=== PATIENT | male | born 1970 | race Caucasian/White ===

== ENCOUNTER 2016-02-25 17:11 | Emergency (ER) | payer BC ==
[~2016-02-25] VITALS: Ht 182.9 cm; Wt 127.3 kg
[~2016-02-25 17:11] MED LIST: AMOXICILLIN 8751 TAB PO; CEPHALEXIN500 M1 PO; CHANTIX 0.5MG0.5 MG PO; CLINDAMYCIN150 MG PO; FLEXERIL 1010 MG/TAB PO; HYZAAR 50-12.1 UDTAB PO; NO HOME MEDICATIONS; NORCO 325 MG-51 TAB PO; NORCO 325 MG-7.1 TAB PO; PRINZIDE 12.5 M1 TAB PO; PRINZIDE 25 MG-1 TAB PO; VALIUM 5MG T5 MG/TAB PO
[2016-02-25 17:12] VITALS: TEMP 97.7
[2016-02-25] MEDS ORDERED: NORCO 325 MG-51 TAB PO (18:11)
[2016-02-25 18:23] VITALS: BP 145/97; PULSE 64
== END 2016-02-25 18:24 | disposition home or self-care (01) ==
LOC: COL.ER 17:11
DX: K40.90 Unilateral inguinal hernia, without obstruction or gangrene, not specified as recurrent (principal)
CPT/HCPCS: J3010; J3360

== ENCOUNTER 2016-02-28 10:04 | Day surgery (SDC) | payer BC ==
[~2016-02-28] VITALS: Ht 182.9 cm; Wt 124.7 kg
[2016-02-28 10:30] VITALS: BP 162/104; PULSE 55; TEMP 97.8
[2016-02-28 15:15] VITALS: BP 140/89; PULSE 75; TEMP 98.3
[2016-02-28 15:30] VITALS: BP 127/90; PULSE 79
[2016-02-28] MEDS ORDERED: NORCO 325 MG-51 TAB PO (15:43)
[2016-02-28 15:45] VITALS: BP 151/91; PULSE 72
[2016-02-28 15:58] VITALS: TEMP 98.4
[2016-02-28 16:00] VITALS: BP 147/87; PULSE 64
== END 2016-02-28 16:20 | disposition home or self-care (01) ==
LOC: SDCO 10:04
DX: K40.90 Unilateral inguinal hernia, without obstruction or gangrene, not specified as recurrent (principal); F17.210 Nicotine dependence, cigarettes, uncomplicated; Z80.9 Family history of malignant neoplasm, unspecified
CPT/HCPCS: A4315; C1781; E0710; J0360; J1170; J1885; J2405; J2704; J3010; J7120

== ENCOUNTER 2017-01-05 12:29 | Emergency (ER) | payer BC ==
[~2017-01-05] VITALS: Ht 182.9 cm; Wt 127.3 kg
[2017-01-05 12:31] VITALS: TEMP 97.9
[2017-01-05] MEDS ORDERED: PRINZIDE 12.5 M1 TAB PO (12:34)
[2017-01-05 13:41] VITALS: BP 147/98
[2017-01-05 14:09] LABS: BASO # 0.1 (0.0-0.2); BASO % 0.6 % (0.0-2.0); EOS # 0.2 (0.0-0.7); EOS % 2.4 % (0-4.0); GRAN # 5.7 (1.4-6.5); GRAN % 56.5 % (42.2-75.2); HEMATOCRIT 40.8 % (42.0-52.0); HEMOGLOBIN 13.9 g/dl (13.5-18.0); LYMPH # 3.3 (1.2-3.4); LYMPH % 33.3 % (20.0-51.0); MEAN CELL VOLUME 94 fl (80.0-100.0); MEAN CORPUSCULAR HEMOGLOBIN 32 pg (27.0-31.0); MEAN CORPUSCULAR HGB CONC 34 g/dl (33.0-37.0); MEAN PLATELET VOLUME 9.7 fl (7.4-10.4); MONO # 0.6 (0.1-0.6); MONO % 6.2 % (1.7-9.3); PLATELET COUNT 332 K/mm3 (130-400); RED BLOOD COUNT 4.32 M/mm3 (4.20-5.60)
[2017-01-05 14:19] LABS: ADJUSTED CALCIUM 9.2 mg/dL (8.4-10.2); ALANINE AMINOTRANSFERASE 42 U/L (21-72); ALBUMIN 3.9 gm/dL (3.5-5.0); ALKALINE PHOSPHATASE 90 U/L (50-136); ANION GAP 7 mmol/L (7-16); BILIRUBIN,TOTAL 0.5 mg/dL (0.0-1.0); BLOOD UREA NITROGEN 10 mg/dL (9-20); CALCIUM 9.1 mg/dL (8.4-10.2); CARBON DIOXIDE 28 mmol/L (22-30); CHLORIDE 105 mmol/L (98-107); CREATININE, serum 1.05 mg/dL (0.66-1.25); GLUCOSE 93 mg/dL (74-106); POTASSIUM 4.2 mmol/L (3.4-5.0); SODIUM 140 mmol/L (137-145); TOTAL PROTEIN 6.4 gm/dL (6.4-8.2)
[2017-01-05 14:30] LABS: TROPONIN-I < 0.012 ng/mL (0.000-0.034)
[2017-01-05] MEDS ORDERED: NORCO 325 MG-7.1 TAB PO (15:07)
[2017-01-05 15:15] VITALS: PULSE 67
== END 2017-01-05 15:15 | disposition home or self-care (01) ==
LOC: COL.ER 12:29
PROVIDERS: Nurse Practitioner
DX: M25.512 Pain in left shoulder (principal); I10 Essential (primary) hypertension; F17.210 Nicotine dependence, cigarettes, uncomplicated; Z90.89 Acquired absence of other organs; X50.9XXA Other and unspecified overexertion or strenuous movements or postures, initial encounter
CPT/HCPCS: J1170

== ENCOUNTER 2017-03-16 16:07 | Day surgery (SDC) | payer BC ==
[~2017-03-16] VITALS: Ht 185.4 cm; Wt 127.3 kg
[2017-03-16] MEDS ORDERED: AMOXICILLIN875 MG PO (16:24)
[2017-03-16 17:36] LABS: BASO # 0.1 (0.0-0.2); BASO % 0.4 % (0.0-2.0); EOS # 0.3 (0.0-0.7); EOS % 1.9 % (0-4.0); GRAN # 9.2 (1.4-6.5); GRAN % 68.8 % (42.2-75.2); HEMATOCRIT 43.5 % (42.0-52.0); LYMPH # 2.6 (1.2-3.4); LYMPH % 19.4 % (20.0-51.0); MEAN CELL VOLUME 93 fl (80.0-100.0); MEAN CORPUSCULAR HEMOGLOBIN 32 pg (27.0-31.0); MEAN CORPUSCULAR HGB CONC 35 g/dl (33.0-37.0); MEAN PLATELET VOLUME 10.1 fl (7.4-10.4); MONO # 1.2 (0.1-0.6); MONO % 8.7 % (1.7-9.3); PLATELET COUNT 334 K/mm3 (130-400); RED BLOOD COUNT 4.69 M/mm3 (4.20-5.60); REDCELL DISTRIBUTION WIDTH-CV 13.1 % (11.5-14.5)
[2017-03-16 17:45] LABS: ALBUMIN 4.1 gm/dL (3.5-5.0); BILIRUBIN,TOTAL 0.5 mg/dL (0.0-1.0); C-REACTIVE PROTEIN 5.7 mg/dL (0.0-0.9); CALCIUM 9.3 mg/dL (8.4-10.2); CREATININE, serum 0.88 mg/dL (0.66-1.25); POTASSIUM 4.3 mmol/L (3.4-5.0); TOTAL PROTEIN 7.4 gm/dL (6.4-8.2)
[2017-03-16 18:09] LABS: COLLECTION METHOD CLEAN CATCH
[2017-03-16 18:14] LABS: MUCOUS Present /lpf; PH 6 (5-8); SQUAMOUS EPITHELIAL None Seen /hpf; URINE APPEARANCE Clear; URINE BACTERIA None Seen /hpf; URINE BILIRUBIN Negative (NEGATIVE); URINE BLOOD 1+ (NEGATIVE); URINE COLOR Yellow; URINE GLUCOSE Negative (NEGATIVE); URINE KETONE Negative (NEGATIVE); URINE LEUKOCYTE ESTERASE Negative (NEGATIVE); URINE NITRATE Negative (NEGATIVE); URINE PROTEIN(semi-quant) Negative (NEGATIVE); URINE RBC 0-2 /hpf
[2017-03-16] MEDS ORDERED: NORCO 325 MG-51 TAB PO (21:43)
[2017-03-16] MEDS ORDERED: AMOXICILLIN 8751 TAB PO (21:43)
[2017-03-16] MEDS ORDERED: COLACE 100100 MG/CAP PO (21:43)
[2017-03-16] MEDS ORDERED: MOTRIN 600600 MG/TAB PO (21:43)
[2017-03-16 22:10] VITALS: BP 140/92; PULSE 75; TEMP 97.9
[2017-03-16 22:25] VITALS: BP 141/90; PULSE 73
[2017-03-16 22:40] VITALS: BP 138/100; PULSE 71
[2017-03-16 22:55] VITALS: BP 140/97; PULSE 93
[2017-03-16 23:25] VITALS: BP 139/91; PULSE 71
[2017-03-16 23:55] VITALS: BP 136/100; PULSE 56
[2017-03-17 00:55] VITALS: BP 145/92; PULSE 65; TEMP 98
[2017-03-17 01:55] VITALS: BP 131/84; PULSE 71; TEMP 98
[2017-03-17 04:00] VITALS: BP 129/85; PULSE 59; TEMP 97.8
[2017-03-17 09:07] VITALS: BP 162/99; PULSE 60; TEMP 97.7
== END 2017-03-17 11:01 | disposition home or self-care (01) ==
LOC: COL.ER 16:07 → SDCO 20:14 → SURG 22:10 → SDCO 03-17 11:01
PROVIDERS: Emergency Medicine
DX: K35.80 Unspecified acute appendicitis (principal); J02.9 Acute pharyngitis, unspecified; I10 Essential (primary) hypertension; F17.210 Nicotine dependence, cigarettes, uncomplicated; Z82.49 Family history of ischemic heart disease and other diseases of the circulatory system; J98.4 Other disorders of lung; Z88.8 Allergy status to other drugs, medicaments and biological substances; Z23 Encounter for immunization
CPT/HCPCS: OP; J0330; J0694; J1100; J1885; J2310; J2405; J2543; J2704; J7030; J7120; Q9967

== ENCOUNTER 2017-03-18 07:46 | Inpatient (IN) | payer BC ==
[~2017-03-18] VITALS: Ht 182.9 cm; Wt 127.3 kg
[~2017-03-18 07:46] MED LIST changes: +AMOXICILLIN875 MG PO; +COLACE 100100 MG/CAP PO; +MOTRIN 600600 MG/TAB PO
[2017-03-18 09:39] LABS: HEMATOCRIT 47.1 % (42.0-52.0); HEMOGLOBIN 16.1 g/dl (13.5-18.0); MEAN CELL VOLUME 93 fl (80.0-100.0); MEAN CORPUSCULAR HEMOGLOBIN 32 pg (27.0-31.0); MEAN CORPUSCULAR HGB CONC 34 g/dl (33.0-37.0); MEAN PLATELET VOLUME 10.1 fl (7.4-10.4); RED BLOOD COUNT 5.07 M/mm3 (4.20-5.60); REDCELL DISTRIBUTION WIDTH-CV 13.2 % (11.5-14.5)
[2017-03-18 09:45] LABS: POTASSIUM 4.4 mmol/L (3.4-5.0)
[2017-03-18 09:47] LABS: PLATELET COUNT 443 K/mm3 (130-400)
[2017-03-18 09:50] LABS: ALBUMIN 4.2 gm/dL (3.5-5.0); BILIRUBIN,TOTAL 0.5 mg/dL (0.0-1.0); C-REACTIVE PROTEIN 5.8 mg/dL (0.0-0.9); CALCIUM 10.8 mg/dL (8.4-10.2); TOTAL PROTEIN 7.5 gm/dL (6.4-8.2)
[2017-03-18 10:41] LABS: COLLECTION METHOD CLEAN CATCH
[2017-03-18 11:09] LABS: MUCOUS Present /lpf; PH 5 (5-8); SQUAMOUS EPITHELIAL 0-2 /hpf; URINE APPEARANCE Clear; URINE BACTERIA None Seen /hpf; URINE BILIRUBIN Negative (NEGATIVE); URINE BLOOD Negative (NEGATIVE); URINE COLOR Amber; URINE GLUCOSE Negative (NEGATIVE); URINE KETONE Negative (NEGATIVE); URINE LEUKOCYTE ESTERASE Negative (NEGATIVE); URINE NITRATE Negative (NEGATIVE); URINE PROTEIN(semi-quant) 1+ (NEGATIVE); URINE RBC 0-2 /hpf
[2017-03-18 11:42] VITALS: BP 143/99; PULSE 85; TEMP 98.6
[2017-03-18 12:25] LABS: BAND 24 % (0-10); LYMPHOCYTE 16 % (20.0-51.0); NEUTROPHILS 59 % (42.0-75.2); PLATELET ESTIMATE INCREASED (NORMAL)
[2017-03-18 15:14] LABS: PROTHROMBIN TIME 12.1 SECONDS (9.7-12.8)
[2017-03-18 17:17] VITALS: BP 165/109; PULSE 94; TEMP 98.1
[2017-03-18 20:07] VITALS: BP 144/114; PULSE 108; TEMP 97.4
[2017-03-18 23:19] VITALS: BP 140/96; PULSE 100; TEMP 98
[2017-03-19 04:00] VITALS: BP 141/94; PULSE 95; TEMP 97.5
[2017-03-19 06:55] LABS: HEMATOCRIT 47.1 % (42.0-52.0); HEMOGLOBIN 15.7 g/dl (13.5-18.0); MEAN CELL VOLUME 95 fl (80.0-100.0); MEAN CORPUSCULAR HEMOGLOBIN 32 pg (27.0-31.0); MEAN CORPUSCULAR HGB CONC 33 g/dl (33.0-37.0); MEAN PLATELET VOLUME 10.2 fl (7.4-10.4); PLATELET COUNT 500 K/mm3 (130-400); RED BLOOD COUNT 4.97 M/mm3 (4.20-5.60); REDCELL DISTRIBUTION WIDTH-CV 13.5 % (11.5-14.5)
[2017-03-19 07:18] LABS: ALBUMIN 3.4 gm/dL (3.5-5.0); BILIRUBIN,TOTAL 0.5 mg/dL (0.0-1.0); CALCIUM 9.2 mg/dL (8.4-10.2); CREATININE, serum 0.89 mg/dL (0.66-1.25); POTASSIUM 4.1 mmol/L (3.4-5.0); TOTAL PROTEIN 6.5 gm/dL (6.4-8.2)
[2017-03-19 08:56] LABS: BAND 37 % (0-10); LYMPHOCYTE 14 % (20.0-51.0); NEUTROPHILS 48 % (42.0-75.2); PLATELET ESTIMATE INCREASED (NORMAL)
[2017-03-19 10:08] VITALS: BP 149/107; BP 161/101; PULSE 87; TEMP 98.1
[2017-03-19 13:48] VITALS: BP 137/88; PULSE 84; TEMP 98.3
[2017-03-19 17:15] VITALS: BP 136/91; PULSE 89; TEMP 97.8
[2017-03-19 20:18] VITALS: BP 138/97; PULSE 91; TEMP 98.9
[2017-03-20 00:08] VITALS: BP 127/84; PULSE 78; TEMP 98.3
[2017-03-20 06:00] VITALS: BP 138/89; PULSE 75; TEMP 97.8
[2017-03-20 09:50] VITALS: BP 120/82; PULSE 80; TEMP 97.1
[2017-03-20 11:00] LABS: HEMATOCRIT 43.2 % (42.0-52.0); HEMOGLOBIN 14.7 g/dl (13.5-18.0); MEAN CELL VOLUME 93 fl (80.0-100.0); MEAN CORPUSCULAR HEMOGLOBIN 32 pg (27.0-31.0); MEAN CORPUSCULAR HGB CONC 34 g/dl (33.0-37.0); MEAN PLATELET VOLUME 9.9 fl (7.4-10.4); PLATELET COUNT 452 K/mm3 (130-400); RED BLOOD COUNT 4.63 M/mm3 (4.20-5.60); REDCELL DISTRIBUTION WIDTH-CV 13.4 % (11.5-14.5)
[2017-03-20 11:08] LABS: CALCIUM 8.9 mg/dL (8.4-10.2); CREATININE, serum 1.05 mg/dL (0.66-1.25); POTASSIUM 4.1 mmol/L (3.4-5.0)
[2017-03-20 11:45] LABS: BAND 21 % (0-10); EOSINOPHIL 2 % (0-4); LYMPHOCYTE 20 % (20.0-51.0); NEUTROPHILS 55 % (42.0-75.2); PLATELET ESTIMATE INCREASED (NORMAL)
[2017-03-20 13:38] VITALS: BP 126/86; PULSE 68; TEMP 97.7
[2017-03-20 18:11] VITALS: BP 139/95; PULSE 82; TEMP 97.7
[2017-03-20 22:43] VITALS: BP 142/88; PULSE 77; TEMP 98.4
[2017-03-21] VITALS (11 sets, daily range): BP systolic 85–157; BP diastolic 52–95; PULSE 61–83; TEMP 97.3–98.7
[2017-03-21 06:50] LABS: HEMATOCRIT 41.9 % (42.0-52.0); MEAN CELL VOLUME 94 fl (80.0-100.0); MEAN CORPUSCULAR HEMOGLOBIN 32 pg (27.0-31.0); MEAN CORPUSCULAR HGB CONC 33 g/dl (33.0-37.0); MEAN PLATELET VOLUME 9.9 fl (7.4-10.4); PLATELET COUNT 428 K/mm3 (130-400); RED BLOOD COUNT 4.44 M/mm3 (4.20-5.60); REDCELL DISTRIBUTION WIDTH-CV 13.2 % (11.5-14.5)
[2017-03-21 06:58] LABS: ALBUMIN 3.6 gm/dL (3.5-5.0); CREATININE, serum 1.01 mg/dL (0.66-1.25); PHOSPHOROUS 2.7 mg/dL (2.5-4.5); POTASSIUM 3.6 mmol/L (3.4-5.0)
[2017-03-21 10:34] LABS: BAND 19 % (0-10); BASOPHIL 1 % (0-2); EOSINOPHIL 1 % (0-4); LYMPHOCYTE 23 % (20.0-51.0); METAMYELOCYTE 2 % (0-0); NEUTROPHILS 53 % (42.0-75.2)
[2017-03-21 10:35] LABS: PLATELET ESTIMATE INCREASED (NORMAL)
[2017-03-22 05:06] VITALS: BP 128/81; PULSE 57; TEMP 97.9
[2017-03-22 09:39] VITALS: BP 171/92; PULSE 65; TEMP 98
[2017-03-22] MEDS ORDERED: PERCOCET 325 MG1 TA3 PO (14:16)
[2017-03-22] MEDS ORDERED: NEURONTIN100 MG/CAP PO (14:16)
== END 2017-03-22 14:45 | disposition home or self-care (01) | DRG 389 ==
LOC: COL.ER 07:46 → SURG 09:50
PROVIDERS: Family Medicine; Surgery
DX: K56.7 Ileus, unspecified (principal); L76.32 Postprocedural hematoma of skin and subcutaneous tissue following other procedure
CPT/HCPCS: G0378; J1170; J2405; J2543; J2765; J7030; Q9967

== ENCOUNTER → 2017-03-29 | Outpatient (CLI) | payer BC ==
[~2017-03-29] MED LIST changes: +NEURONTIN100 MG/CAP PO; +PERCOCET 325 MG1 TA3 PO
[2017-03-29 14:20] LABS: HEMOGLOBIN 13.9 g/dl (13.5-18.0); MEAN CELL VOLUME 94 fl (80.0-100.0); MEAN CORPUSCULAR HEMOGLOBIN 31 pg (27.0-31.0); MEAN CORPUSCULAR HGB CONC 33 g/dl (33.0-37.0); PLATELET COUNT 426 K/mm3 (130-400); RED BLOOD COUNT 4.47 M/mm3 (4.20-5.60); REDCELL DISTRIBUTION WIDTH-CV 13.4 % (11.5-14.5)
[2017-03-29 14:26] LABS: ALBUMIN 4.2 gm/dL (3.5-5.0); BILIRUBIN,TOTAL 0.4 mg/dL (0.0-1.0); CALCIUM 9.9 mg/dL (8.4-10.2); CREATININE, serum 0.86 mg/dL (0.66-1.25); POTASSIUM 4.5 mmol/L (3.4-5.0); TOTAL PROTEIN 7.4 gm/dL (6.4-8.2)
== END ==
LOC: COL.RAD 12:00
PROVIDERS: Surgery
DX: R10.9 Unspecified abdominal pain (principal); Z98.890 Other specified postprocedural states; R10.31 Right lower quadrant pain; Z90.49 Acquired absence of other specified parts of digestive tract
CPT/HCPCS: J7050; Q9967

== ENCOUNTER 2017-07-15 10:35 | Emergency (ER) | payer SELFPAY ==
[~2017-07-15] VITALS: Ht 182.9 cm; Wt 125.0 kg
[2017-07-15 10:46] VITALS: BP 173/88; TEMP 98.3
[2017-07-15] MEDS ORDERED: CEPHALEXIN500 M1 PO (11:26)
[2017-07-15 12:54] VITALS: PULSE 80
== END 2017-07-15 12:55 | disposition home or self-care (01) ==
LOC: COL.ER 10:35
DX: M79.641 Pain in right hand (principal); F17.210 Nicotine dependence, cigarettes, uncomplicated; Z90.89 Acquired absence of other organs; Z98.890 Other specified postprocedural states
CPT/HCPCS: J1885

== ENCOUNTER 2018-05-11 09:36 | Emergency (ER) | payer SELFPAY ==
[~2018-05-11] VITALS: Ht 182.9 cm; Wt 125.0 kg
[2018-05-11 09:40] VITALS: TEMP 98.5
[2018-05-11] MEDS ORDERED: ADVIL200 MG PO (09:50)
[2018-05-11 10:23] LABS: COLLECTION METHOD CLEAN CATCH
[2018-05-11 10:28] LABS: PH 6 (5-8); SQUAMOUS EPITHELIAL None Seen /hpf; URINE APPEARANCE Clear; URINE BACTERIA None Seen /hpf; URINE BILIRUBIN Negative (NEGATIVE); URINE BLOOD 1+ (NEGATIVE); URINE COLOR Yellow; URINE GLUCOSE Negative (NEGATIVE); URINE KETONE Negative (NEGATIVE); URINE LEUKOCYTE ESTERASE Negative (NEGATIVE); URINE NITRATE Negative (NEGATIVE); URINE PROTEIN(semi-quant) Negative (NEGATIVE); URINE RBC 0-2 /hpf; URINE UROBILINOGEN Negative (NEGATIVE)
[2018-05-11 10:50] LABS: HEMATOCRIT 46.7 % (42.0-52.0); HEMOGLOBIN 15.8 g/dl (13.5-18.0); MEAN CELL VOLUME 92 fl (80.0-100.0); MEAN CORPUSCULAR HEMOGLOBIN 31 pg (27.0-31.0); MEAN CORPUSCULAR HGB CONC 34 g/dl (33.0-37.0); PLATELET COUNT 290 K/mm3 (130-400); RED BLOOD COUNT 5.07 M/mm3 (4.20-5.60); REDCELL DISTRIBUTION WIDTH-CV 13.4 % (11.5-14.5)
[2018-05-11 11:03] LABS: ALANINE AMINOTRANSFERASE 19 U/L (21-72); ALKALINE PHOSPHATASE 99 U/L (50-136); ANION GAP 7 mmol/L (7-16); AST,SGOT 18 U/L (15-37); BILIRUBIN,TOTAL 0.3 mg/dL (0.0-1.0); BLOOD UREA NITROGEN 9 mg/dL (9-20); CALCIUM 9.2 mg/dL (8.4-10.2); CARBON DIOXIDE 26 mmol/L (22-30); CHLORIDE 106 mmol/L (98-107); CREATININE, serum 0.92 mg/dL (0.66-1.25); GLUCOSE 93 mg/dL (74-106); SODIUM 140 mmol/L (137-145); TOTAL PROTEIN 7.2 gm/dL (6.4-8.2)
[2018-05-11 11:04] LABS: C-REACTIVE PROTEIN < 0.5 mg/dL (0.0-0.9)
[2018-05-11] MEDS ORDERED: FLEXERIL 1010 MG/TAB PO (11:52)
[2018-05-11] MEDS ORDERED: LIDODERM 5% PATC1 EA TP (11:52)
[2018-05-11 12:05] VITALS: BP 149/99; PULSE 70
[2018-05-11 15:10] LABS: LYMPHOCYTE 41 % (20.0-51.0); NEUTROPHILS 56 % (42.0-75.2); PLATELET ESTIMATE NORMAL (NORMAL)
== END 2018-05-11 12:08 | disposition home or self-care (01) ==
LOC: COL.ER 09:36
PROVIDERS: Physician Assistant
DX: M54.31 Sciatica, right side (principal); I10 Essential (primary) hypertension; F17.210 Nicotine dependence, cigarettes, uncomplicated; Z90.49 Acquired absence of other specified parts of digestive tract
CPT/HCPCS: J1885; J2270; J2405

== ENCOUNTER 2018-08-28 11:03 | Emergency (ER) | payer OTHER ==
[~2018-08-28] VITALS: Ht 182.9 cm; Wt 122.7 kg
[~2018-08-28 11:03] MED LIST changes: +ADVIL200 MG PO; +LIDODERM 5% PATC1 EA TP
[2018-08-28 11:09] VITALS: TEMP 98.2
[2018-08-28] MEDS ORDERED: CLEOCIN HCL300 MG PO (11:34)
[2018-08-28] MEDS ORDERED: PRINZIDE 25 MG-1 TAB PO (11:37)
[2018-08-28] MEDS ORDERED: NORCO 325 MG-51 TAB PO (12:05)
[2018-08-28 12:21] VITALS: BP 177/114; PULSE 62
== END 2018-08-28 12:23 | disposition home or self-care (01) ==
LOC: COL.ER 11:03
DX: I10 Essential (primary) hypertension (principal); K02.9 Dental caries, unspecified; K04.7 Periapical abscess without sinus; F17.210 Nicotine dependence, cigarettes, uncomplicated

== ENCOUNTER 2018-08-30 09:59 | Emergency (ER) | payer OTHER ==
[~2018-08-30] VITALS: Ht 182.9 cm; Wt 122.4 kg
[~2018-08-30 09:59] MED LIST changes: +CLEOCIN HCL300 MG PO
[2018-08-30 10:16] VITALS: TEMP 97.3
[2018-08-30] MEDS ORDERED: PEN-VEE K500 MG PO (10:48)
[2018-08-30 10:58] VITALS: BP 171/97; PULSE 64
== END 2018-08-30 10:51 | disposition home or self-care (01) ==
LOC: COL.ER 09:59
DX: K04.7 Periapical abscess without sinus (principal); F17.210 Nicotine dependence, cigarettes, uncomplicated; I10 Essential (primary) hypertension

== ENCOUNTER 2019-09-01 19:26 | Emergency (ER) | payer SELFPAY ==
[~2019-09-01] VITALS: Ht 182.9 cm; Wt 122.7 kg
[~2019-09-01 19:26] MED LIST changes: +PEN-VEE K500 MG PO
[2019-09-01 19:39] VITALS: BP 133/85; TEMP 98.1
[2019-09-01] MEDS ORDERED: MEDROL 4MG DOSPA4 MG PO (20:38)
[2019-09-01 20:58] VITALS: PULSE 99
== END 2019-09-01 20:55 | disposition home or self-care (01) ==
LOC: COL.ER 19:26
DX: M54.31 Sciatica, right side (principal); F17.210 Nicotine dependence, cigarettes, uncomplicated
CPT/HCPCS: J1885

== ENCOUNTER 2019-12-12 11:07 | Emergency (ER) | payer OTHER ==
[~2019-12-12] VITALS: Ht 182.9 cm; Wt 122.7 kg
[~2019-12-12 11:07] MED LIST changes: +MEDROL 4MG DOSPA4 MG PO
[2019-12-12 11:27] VITALS: TEMP 98.2
[2019-12-12 12:35] VITALS: BP 126/99; PULSE 78
== END 2019-12-12 12:35 | disposition home or self-care (01) ==
LOC: COL.ER 11:07
DX: S61.211A Laceration without foreign body of left index finger without damage to nail, initial encounter (principal); I10 Essential (primary) hypertension; F17.210 Nicotine dependence, cigarettes, uncomplicated; Z88.1 Allergy status to other antibiotic agents; W26.0XXA Contact with knife, initial encounter

== ENCOUNTER 2020-08-09 08:03 | Emergency (ER) | payer SELFPAY ==
[~2020-08-09] VITALS: Ht 182.9 cm; Wt 125.0 kg
[2020-08-09 08:24] VITALS: BP 163/95; TEMP 98
[2020-08-09] MEDS ORDERED: NAPROSYN500 MG PO (09:07)
[2020-08-09 10:02] VITALS: PULSE 75
== END 2020-08-09 10:02 | disposition home or self-care (01) ==
LOC: COL.ER 08:03
DX: M23.91 Unspecified internal derangement of right knee (principal); S86.911A Strain of unspecified muscle(s) and tendon(s) at lower leg level, right leg, initial encounter; F17.210 Nicotine dependence, cigarettes, uncomplicated; I10 Essential (primary) hypertension; Z79.899 Other long term (current) drug therapy; X50.1XXA Overexertion from prolonged static or awkward postures, initial encounter
CPT/HCPCS: L1846

== ENCOUNTER 2020-09-23 17:47 | Emergency (ER) | payer SELFPAY ==
[~2020-09-23] VITALS: Ht 182.9 cm; Wt 120.5 kg
[~2020-09-23 17:47] MED LIST changes: +NAPROSYN500 MG PO
[2020-09-23 17:54] VITALS: TEMP 98.3
[2020-09-23 18:45] LABS: ALANINE AMINOTRANSFERASE 25 U/L (4-49); ALBUMIN 3.8 gm/dL (3.5-5.0); ALKALINE PHOSPHATASE 109 U/L (50-136); ANION GAP 9 mmol/L (7-16); AST,SGOT 46 U/L (15-37); BILIRUBIN,TOTAL 0.3 mg/dL (0.0-1.0); BLOOD UREA NITROGEN 16 mg/dL (9-20); CALCIUM 9.4 mg/dL (8.4-10.2); CARBON DIOXIDE 24 mmol/L (22-30); CHLORIDE 107 mmol/L (98-107); CREATININE, serum 0.81 (0.66-1.25); GLUCOSE 139 mg/dL (74-106); POTASSIUM 4.1 mmol/L (3.4-5.0); SODIUM 140 mmol/L (137-145); TOTAL PROTEIN 6.9 gm/dL (6.4-8.2)
[2020-09-23 19:03] LABS: TROPONIN-I < 0.012 ng/mL (0.000-0.035)
[2020-09-23 20:06] LABS: BASO # 0.1 (0.0-0.2); BASO % 0.6 % (0.0-2.0); EOS # 0.3 (0.0-0.7); EOS % 2.4 % (0-4.0); GRAN # 6.7 (1.4-6.5); GRAN % 64.6 % (42.2-75.2); HEMATOCRIT 42.6 % (42.0-52.0); LYMPH # 2.9 (1.2-3.4); LYMPH % 27.7 % (20.0-51.0); MEAN CELL VOLUME 95 fl (80.0-100.0); MEAN CORPUSCULAR HEMOGLOBIN 31 pg (27.0-31.0); MEAN CORPUSCULAR HGB CONC 33 g/dl (33.0-37.0); MEAN PLATELET VOLUME 10.8 fl (7.4-10.4); MONO # 0.4 (0.1-0.6); MONO % 4.2 % (1.7-9.3); PLATELET COUNT 384 K/mm3 (130-400); RED BLOOD COUNT 4.49 M/mm3 (4.20-5.60); REDCELL DISTRIBUTION WIDTH-CV 13.8 % (11.5-14.5)
[2020-09-23 21:03] VITALS: BP 165/96; PULSE 60
== END 2020-09-23 21:05 | disposition home or self-care (01) ==
LOC: COL.ER 17:47
PROVIDERS: Nurse Practitioner
DX: S86.911A Strain of unspecified muscle(s) and tendon(s) at lower leg level, right leg, initial encounter (principal); R07.89 Other chest pain; M23.91 Unspecified internal derangement of right knee; X58.XXXA Exposure to other specified factors, initial encounter

== ENCOUNTER 2020-10-09 12:22 | Emergency (ER) | payer SELFPAY ==
[~2020-10-09] VITALS: Ht 182.9 cm; Wt 120.5 kg
[2020-10-09 12:31] VITALS: TEMP 97.7
[2020-10-09 13:13] LABS: BASO # 0.1 (0.0-0.2); BASO % 0.6 % (0.0-2.0); EOS # 0.2 (0.0-0.7); EOS % 1.9 % (0-4.0); GRAN # 6.6 (1.4-6.5); GRAN % 58.8 % (42.2-75.2); HEMATOCRIT 40.8 % (42.0-52.0); HEMOGLOBIN 13.7 g/dl (13.5-18.0); LYMPH # 3.6 (1.2-3.4); LYMPH % 31.6 % (20.0-51.0); MEAN CELL VOLUME 95 fl (80.0-100.0); MEAN CORPUSCULAR HEMOGLOBIN 32 pg (27.0-31.0); MEAN CORPUSCULAR HGB CONC 34 g/dl (33.0-37.0); MEAN PLATELET VOLUME 10.2 fl (7.4-10.4); MONO # 0.7 (0.1-0.6); MONO % 6.5 % (1.7-9.3); PLATELET COUNT 343 K/mm3 (130-400); RED BLOOD COUNT 4.29 M/mm3 (4.20-5.60); REDCELL DISTRIBUTION WIDTH-CV 13.9 % (11.5-14.5)
[2020-10-09 13:24] LABS: ALBUMIN 3.9 gm/dL (3.5-5.0); BILIRUBIN,TOTAL 0.2 mg/dL (0.0-1.0); CREATININE, serum 0.85 (0.66-1.25); POTASSIUM 4.1 mmol/L (3.4-5.0); TOTAL PROTEIN 6.7 gm/dL (6.4-8.2)
[2020-10-09 13:56] LABS: COLLECTION METHOD CLEAN CATCH
[2020-10-09 14:03] LABS: PH 6 (5-8); SQUAMOUS EPITHELIAL None Seen /hpf; URINE APPEARANCE Clear; URINE BACTERIA None Seen /hpf; URINE BILIRUBIN Negative (NEGATIVE); URINE BLOOD Negative (NEGATIVE); URINE COLOR Colorless; URINE GLUCOSE Negative (NEGATIVE); URINE KETONE Negative (NEGATIVE); URINE LEUKOCYTE ESTERASE Negative (NEGATIVE); URINE NITRATE Negative (NEGATIVE); URINE PROTEIN(semi-quant) Negative (NEGATIVE); URINE RBC 0-2 /hpf; URINE UROBILINOGEN Negative (NEGATIVE)
[2020-10-09] MEDS ORDERED: PEPCID 20MG TAB20 MG PO (15:35)
[2020-10-09 15:42] VITALS: BP 145/89; PULSE 54
== END 2020-10-09 15:44 | disposition home or self-care (01) ==
LOC: COL.ER 12:22
PROVIDERS: Emergency Medicine
DX: I10 Essential (primary) hypertension (principal); Z98.890 Other specified postprocedural states; Z90.89 Acquired absence of other organs
CPT/HCPCS: J1885; Q9967

== ENCOUNTER 2020-12-02 07:24 | Emergency (ER) | payer OTHER ==
[~2020-12-02] VITALS: Ht 182.9 cm; Wt 120.5 kg
[~2020-12-02 07:24] MED LIST changes: +PEPCID 20MG TAB20 MG PO
[2020-12-02 07:30] VITALS: TEMP 97.5
[2020-12-02] MEDS ORDERED: ATARAX 25MG25 MG/TAB PO (07:50)
[2020-12-02] MEDS ORDERED: CEPHALEXIN500 M1 PO (07:50)
[2020-12-02 08:02] VITALS: BP 170/94; PULSE 86
== END 2020-12-02 08:02 | disposition home or self-care (01) ==
LOC: COL.ER 07:24
DX: L03.031 Cellulitis of right toe (principal); I10 Essential (primary) hypertension; F17.200 Nicotine dependence, unspecified, uncomplicated

== ENCOUNTER 2020-12-21 19:11 | Emergency (ER) | payer SELFPAY ==
[~2020-12-21] VITALS: Ht 182.9 cm; Wt 115.9 kg
[~2020-12-21 19:11] MED LIST changes: +ATARAX 25MG25 MG/TAB PO
[2020-12-21 19:31] VITALS: TEMP 98.1
[2020-12-21] MEDS ORDERED: AMOXICILLIN 50500 MG PO (19:52)
[2020-12-21 19:57] VITALS: BP 148/80; PULSE 76
== END 2020-12-21 19:57 | disposition home or self-care (01) ==
LOC: COL.ER 19:11
DX: K04.7 Periapical abscess without sinus (principal)

== ENCOUNTER 2021-02-05 15:18 | Emergency (ER) | payer SELFPAY ==
[~2021-02-05] VITALS: Ht 182.9 cm; Wt 120.5 kg
[~2021-02-05 15:18] MED LIST changes: +AMOXICILLIN 50500 MG PO
[2021-02-05 17:59] VITALS: BP 138/79; PULSE 84; TEMP 99.5
== END 2021-02-05 18:00 | disposition home or self-care (01) ==
LOC: COL.ER 15:18
DX: U07.1 COVID-19 (principal); I10 Essential (primary) hypertension; Z87.891 Personal history of nicotine dependence

== ENCOUNTER 2021-03-05 12:53 | Emergency (ER) | payer SELFPAY ==
[~2021-03-05] VITALS: Ht 182.9 cm; Wt 120.5 kg
[2021-03-05 13:49] VITALS: TEMP 100.2
[2021-03-05 15:53] VITALS: BP 138/62; PULSE 73
== END 2021-03-05 15:54 | disposition home or self-care (01) ==
LOC: COL.ER 12:53
DX: U07.1 COVID-19 (principal); J10.1 Influenza due to other identified influenza virus with other respiratory manifestations; K21.9 Gastro-esophageal reflux disease without esophagitis; F17.210 Nicotine dependence, cigarettes, uncomplicated; Z79.899 Other long term (current) drug therapy

== ENCOUNTER 2021-03-10 10:47 | Emergency (ER) | payer SELFPAY ==
[~2021-03-10] VITALS: Ht 182.9 cm; Wt 118.2 kg
[2021-03-10 11:02] VITALS: BP 132/87; PULSE 55; TEMP 97.7
[2021-03-10] MEDS ORDERED: PEN-VEE K500 MG PO (12:15)
== END 2021-03-10 12:25 | disposition home or self-care (01) ==
LOC: COL.ER 10:47
DX: K04.7 Periapical abscess without sinus (principal); F17.210 Nicotine dependence, cigarettes, uncomplicated

== ENCOUNTER 2022-05-04 16:54 | Emergency (ER) | payer BC ==
[~2022-05-04] VITALS: Ht 182.9 cm; Wt 127.3 kg
[2022-05-04 17:10] VITALS: TEMP 98.1
[2022-05-04 17:49] LABS: COLLECTION METHOD CLEAN CATCH
[2022-05-04 17:55] LABS: BASO # 0.1 K/mm3 (0.0-0.2); BASO % 0.7 % (0.0-2.0); EOS # 0.3 K/mm3 (0.0-0.7); EOS % 2.8 % (0.0-4.0); GRAN # 6.3 K/mm3 (1.4-6.5); GRAN % 60.2 % (42.2-75.2); HEMATOCRIT 42.2 % (42.0-52.0); HEMOGLOBIN 14.6 g/dl (13.5-18.0); LYMPH # 2.9 K/mm3 (1.2-3.4); LYMPH % 27.8 % (20.0-51.0); MEAN CELL VOLUME 91 fl (80.0-100.0); MEAN CORPUSCULAR HEMOGLOBIN 32 pg (27-31); MEAN CORPUSCULAR HGB CONC 35 g/dl (33.0-37.0); MEAN PLATELET VOLUME 9.7 fl (7.4-10.4); MONO # 0.8 K/mm3 (0.1-0.6); MONO % 7.3 % (1.7-9.3); PLATELET COUNT 360 K/mm3 (130-400); RED BLOOD COUNT 4.63 M/mm3 (4.20-5.60); REDCELL DISTRIBUTION WIDTH-CV 13.4 % (11.5-14.5)
[2022-05-04 17:59] LABS: URINE COLOR Yellow (YELLOW)
[2022-05-04 18:00] LABS: URINE APPEARANCE Clear (CLEAR/HAZY); URINE BLOOD TRACE-INTACT (NEGATIVE)
[2022-05-04 18:01] LABS: URINE GLUCOSE Negative (NEGATIVE); URINE KETONE Negative (NEGATIVE); URINE NITRATE Negative (NEGATIVE); URINE PROTEIN(semi-quant) Negative (NEGATIVE); URINE UROBILINOGEN 0.2 E.U/dL (0.2-1.0)
[2022-05-04 18:04] LABS: MUCOUS Present (NOT PRESENT); SQUAMOUS EPITHELIAL None Seen /hpf (0-10); URINE BACTERIA None Seen /hpf (NONE SEEN); URINE RBC 0-2 /hpf (0-2)
[2022-05-04 18:12] LABS: ALBUMIN 3.9 gm/dL (3.5-5.0); BILIRUBIN,TOTAL 0.3 mg/dL (0.2-1.2); CALCIUM 9.5 mg/dL (8.4-10.2); CREATININE, serum 0.96 mg/dL (0.72-1.25); POTASSIUM 4.1 mmol/L (3.5-4.5)
[2022-05-04 19:30] VITALS: BP 140/96; PULSE 81
== END 2022-05-04 19:30 | disposition home or self-care (01) ==
LOC: COL.ER 16:54
PROVIDERS: Physician Assistant
DX: K40.20 Bilateral inguinal hernia, without obstruction or gangrene, not specified as recurrent (principal); K76.0 Fatty (change of) liver, not elsewhere classified; Z90.49 Acquired absence of other specified parts of digestive tract; Z98.890 Other specified postprocedural states
CPT/HCPCS: J1885; J7030

== ENCOUNTER 2022-05-21 11:28 | Emergency (ER) | payer BC ==
[~2022-05-21] VITALS: Ht 182.9 cm; Wt 131.8 kg
[2022-05-21 11:34] VITALS: TEMP 97.9
[2022-05-21] MEDS ORDERED: NORCO 325 MG-51 TAB PO (13:46)
[2022-05-21 13:50] VITALS: BP 180/108; PULSE 65
== END 2022-05-21 13:50 | disposition home or self-care (01) ==
LOC: COL.ER 11:28
DX: R10.30 Lower abdominal pain, unspecified (principal); F17.200 Nicotine dependence, unspecified, uncomplicated; Z98.890 Other specified postprocedural states; Z28.310 Unvaccinated for COVID-19

== ENCOUNTER 2022-06-13 06:54 | Day surgery (SDC) | payer BC ==
[~2022-06-13] VITALS: Ht 182.9 cm; Wt 145.5 kg
[2022-06-13] MEDS ORDERED: PRINIVIL20 MG PO (08:13)
[2022-06-13] MEDS ORDERED: FLOMAX 0.40.4 MG/CAP PO (08:14)
[2022-06-13] MEDS ORDERED: PROTONIX20 MG PO (08:15)
[2022-06-13] MEDS ORDERED: PROZAC 20MG20 MG PO (08:17)
[2022-06-13] MEDS ORDERED: ATARAX 25MG25 MG/TAB PO (08:17)
[2022-06-13 08:18] VITALS: BP 147/96; PULSE 67; TEMP 98.2
--- NOTE | 2022-06-13 10:24 | NUR ---
Initial visit; Patient and his thanked Leather Softener for looking in on him prior to his surgical procedure. Leather Softener offered encouragement and prayer for a successful procedure and rapid and thorough recovery.
[2022-06-13] MEDS ORDERED: NORCO 325 MG-51 TAB PO (11:16)
[2022-06-13 12:20] VITALS: BP 139/87; PULSE 73; TEMP 97.9
[2022-06-13 12:35] VITALS: BP 131/79; PULSE 78
[2022-06-13 12:50] VITALS: BP 125/79; PULSE 77
[2022-06-13 12:56] VITALS: TEMP 97
[2022-06-13 13:05] VITALS: BP 128/76; PULSE 76
--- NOTE | 2022-06-13 18:36 | NUR ---
[id number]: PT TO RECOVERY BAY 2 FROM PACU S/P ROBOTIC BILAT INGUINAL HERNIA REPAIR A&OX4, PLACED ON MONITOR, VSS ON RA RECEIVED REPORT AND ASSUMED CARE OF PT FROM JOSÉ JOHNSTON BROUGHT TO BEDSIDE PROVIDED WATER PER REQUEST, TOLERATING WELL PT HAS REMAINED A&O, NAD, VSS ON RA, TOLERATING PO, IS WITHOUT SIGNIFICANT COMPLAINT, WITH STEADY GAIT THRU OUT STAY IV D/C'D. D/C INSTRUCTIONS, ANY FOLLOW UP REVIEWED AND HANDED TO PT. ALL QUESTIONS AND CONCERNS ADDRESSED TO PT SATISFACTION. TAKEN TO EXIT VIA W/C WITH ALL BELONGINGS AND PAPERWORK IN HAND, ASSISTED INTO PASSENGER SEAT OF POV. TO DRIVE HOME.
== END 2022-06-13 13:20 | disposition home or self-care (01) ==
LOC: SDCO 06:54
DX: K40.90 Unilateral inguinal hernia, without obstruction or gangrene, not specified as recurrent (principal); K40.91 Unilateral inguinal hernia, without obstruction or gangrene, recurrent; F18.21 Inhalant dependence, in remission
CPT/HCPCS: C1781; J0360; J0690; J1100; J1170; J1200; J1885; J2405; J2704; J3010; J7120

== ENCOUNTER 2022-08-02 21:23 | Emergency (ER) | payer OTHER ==
[~2022-08-02] VITALS: Ht 182.9 cm; Wt 127.3 kg
[~2022-08-02 21:23] MED LIST changes: +FLOMAX 0.40.4 MG/CAP PO; +PRINIVIL20 MG PO; +PROTONIX20 MG PO; +PROZAC 20MG20 MG PO
[2022-08-02 21:30] VITALS: TEMP 98
[2022-08-02 21:47] LABS: COLLECTION METHOD CLEAN CATCH
[2022-08-02 21:50] LABS: BASO # 0.1 K/mm3 (0.0-0.2); BASO % 0.5 % (0.0-2.0); EOS # 0.2 K/mm3 (0.0-0.7); EOS % 1.7 % (0.0-4.0); GRAN # 4.8 K/mm3 (1.4-6.5); GRAN % 51.4 % (42.2-75.2); HEMOGLOBIN 11.9 g/dl (13.5-18.0); LYMPH # 3.4 K/mm3 (1.2-3.4); LYMPH % 36.7 % (20.0-51.0); MEAN CELL VOLUME 93 fl (80.0-100.0); MEAN CORPUSCULAR HEMOGLOBIN 31 pg (27-31); MEAN CORPUSCULAR HGB CONC 33 g/dl (33.0-37.0); MEAN PLATELET VOLUME 9.7 fl (7.4-10.4); MONO # 0.9 K/mm3 (0.1-0.6); MONO % 9.2 % (1.7-9.3); PLATELET COUNT 370 K/mm3 (130-400); RED BLOOD COUNT 3.84 M/mm3 (4.20-5.60); REDCELL DISTRIBUTION WIDTH-CV 14.6 % (11.5-14.5)
[2022-08-02 21:51] LABS: HEMATOCRIT 35.8 % (42.0-52.0)
[2022-08-02 21:52] LABS: SQUAMOUS EPITHELIAL None Seen /hpf (0-10); URINE BACTERIA None Seen /hpf (NONE SEEN); URINE CALCIUM OXALATE CRYSTAL Present (NOT PRESENT); URINE COLOR Yellow (YELLOW); URINE RBC 0-2 /hpf (0-2)
[2022-08-02 21:53] LABS: PH 8.5 (5-8); URINE APPEARANCE Clear (CLEAR/HAZY); URINE BLOOD Negative (NEGATIVE); URINE GLUCOSE Negative (NEGATIVE); URINE KETONE Negative (NEGATIVE); URINE NITRATE Negative (NEGATIVE); URINE PROTEIN(semi-quant) Negative (NEGATIVE)
[2022-08-02 22:12] LABS: ALBUMIN 3.3 gm/dL (3.5-5.0); BILIRUBIN,TOTAL 0.4 mg/dL (0.2-1.2); CALCIUM 8.7 mg/dL (8.4-10.2); CREATININE, serum 1.13 mg/dL (0.72-1.25); POTASSIUM 3.9 mmol/L (3.5-4.5); TOTAL PROTEIN 6.4 gm/dL (6.2-8.1)
[2022-08-02 22:31] LABS: TROPONIN-I 0.011 ng/mL (0.00-0.033); TSH w REFLEX 1.658 uIU/mL (0.350-4.940)
[2022-08-02] MEDS ORDERED: Furosemide 40 MG TAB PO ONE (22:45)
[2022-08-02] MEDS ORDERED: DOXYCYCLINE 10100 MG PO (22:50)
[2022-08-02 22:54] VITALS: BP 142/104; PULSE 84
== END 2022-08-02 22:55 | disposition home or self-care (01) ==
LOC: COL.ER 21:23
PROVIDERS: Emergency Medicine
DX: R60.0 Localized edema (principal); I10 Essential (primary) hypertension

== ENCOUNTER → 2022-08-03 | Outpatient (CLI) | payer OTHER ==
[~2022-08-03] MED LIST changes: +DOXYCYCLINE 10100 MG PO
== END ==
LOC: COL.RAD 05:19
DX: R60.9 Edema, unspecified (principal)